=== PATIENT | female | born 1980 | race Caucasian/White ===

== ENCOUNTER 2023-09-22 21:16 | Inpatient (IN) ==
[2023-09-22 22:08] LABS: Basophils # (auto) 0.08 K/uL (0.00-0.20); Basophils % (auto) 0.7 %; Eosinophils # (auto) 0.29 K/uL (0.00-0.50); Eosinophils % (auto) 2.5 %; Hematocrit (blood only) 41.2 % (37.0-47.0); Hemoglobin 13.6 g/dl (12.0-16.0); Immature Granulocytes # (auto) 0.03 K/uL (0.01-0.20); Immature Granulocytes % (auto) 0.3 %; Lymphocytes # (auto) 4.86 K/uL (1.20-3.40); Lymphocytes % (auto) 42.5 %; Mean Corpuscular Hemoglobin 27.9 pg (25.0-34.0); Mean Corpuscular Volume 84.4 fL (80.0-100.0); Mean Platelet Volume 10.6 fL (9.4-12.4); Monocytes # (auto) 0.58 K/uL (0.11-0.59); Monocytes % (auto) 5.1 %; Neutrophils % (auto) 48.9 %; Platelet Count 294 K/uL (130-400); RDW Coefficient of Variation 13.1 % (11.5-14.5); RDW Standard Deviation 40.1 fL (36.4-46.3); Red Blood Count 4.88 M/uL (4.20-5.40); White Blood Count 11.44 K/ul (4.8-10.8)
[2023-09-22 22:15] LABS: Appearance Urine Cloudy (Clear); Bacteria Urine Automated 2+ (None Seen); Bilirubin Urine Negative (Negative); Blood Urine Negative (Negative); Calcium Oxalate Crystals Urine Present (None Prsent); Color Urine Dark Yellow; Glucose Urine UA Negative (Negative); Ketones Urine 1+ (Negative); Leukocyte Esterase Urine 1+ (Negative); Mucus Urine Present (None Prsent); Nitrite Urine Negative (Negative); Protein Urine 1+ (Negative); Specific Gravity Urine 1.029 (1.000-1.030); Urobilinogen Urine Negative (Negative)
[2023-09-22 22:20] LABS: Alanine Aminotransferase 24 U/L (7-52); Albumin Globulin Ratio 1.6 (0.9-2); Albumin Level 4.6 gm/dl (3.4-5.0); Alkaline Phosphatase 51 U/L (34-104); Anion Gap 11 (3-11); Aspartate Aminotransferase 20 U/L (13-39); Bilirubin,Total 0.3 mg/dl (0.2-1.0); Blood Urea Nitrogen 19 mg/dl (6-23); Calcium 10.4 mg/dl (8.6-10.3); Carbon Dioxide 22 mmol/L (21-32); Chloride 103 mmol/L (98-107); Est GFR (African American) 116.9 ml/min; Est GFR (Non-African American) 100.9 ml/min; Globulin 2.8 gm/dl (2.5-4.0); Glucose 148 mg/dl (70-99(Fasting)); Lipase 20 U/L (11-82); Sodium 136 mmol/L (136-145); Total Protein 7.4 gm/dl (6.0-8.3)
[2023-09-22] MEDS: ACETAMINOPHEN 1,000 MG/100 ML VIAL IV STA (22:20)
[2023-09-22] MEDS: MoRPHine SULFATE 4 MG/ML 1 ML CARP\\VIAL IV STA (22:20)
[2023-09-22] MEDS: SODIUM CHLORIDE 0.9% 1,000 ML IV ONE (22:22)
[2023-09-22 22:36] LABS: Pregnancy Test, Serum Negative (Negative)
--- NOTE | 2023-09-22 22:55 | Emergency Department Note ---
History of Present Illness General Chief complaint: Vomiting Stated complaint: SEVERE ABD PAIN, VOMITING/NAUSEA Time Seen by Provider: 09/22/23 21:58 History of Present Illness Maximum Pain Intensity: 7 This 43-year-old female presents ER complaining of left lower abdominal pain since 8 PM tonight. She did vomit once. Patient denies chest pain, dyspnea, cough, congestion, fever, chills, flank pain, urinary symptoms, rash. No injury to the area. Gallbladder has been surgically removed. Patient is concerned it could be her appendix. Home Medications Medication Instructions Recorded Confirmed Type Lactobacil.acidophilus-Bifido.animalis 1 cap PO DAILY 09/23/23 09/23/23 History 5 billion cell sprinkle capsule (Probiotic) ascorbic acid (vitamin C) 1,000 mg 1 g PO DAILY 09/23/23 09/23/23 History tablet (Vitamin C) coenzyme Q10 100 mg capsule 200 mg PO DAILY 09/23/23 09/23/23 History (CoQ-10) levothyroxine 25 mcg tablet 25 mcg PO DAILY 09/23/23 09/23/23 History metformin 500 mg tablet 500 mg PO BID 09/23/23 09/23/23 History omeprazole magnesium 20 mg 20 mg PO DAILY 09/23/23 09/23/23 History tablet,delayed release (Prilosec OTC) Allergies Allergy/AdvReac Type Severity Reaction Status Date / Time Penicillins Allergy Intermediate ORAL HIVES Verified 09/23/23 00:28 Past Med/Surg History Problem List (Updated 09/23/23 @ 00:45 by Josseline Gillespie PA-C) Kidney stone on left side (Acute) Acute UTI (Acute) Social History Smoking Status: Former smoker Preferred Language: Slovak Feels Safe at Home: Yes Review of Systems A total of 10 systems reviewed and were otherwise negative Physical Exam Vital Signs Vital Signs - 24 hr 09/22/23 21:23 09/22/23 22:17 09/22/23 22:43 Temperature 36.4 C L Temperature Source Oral Pulse Rate 87 82 Pulse Rate [Apical] 81 Pulse Rate from SpO2 Sensor Respiratory Rate 18 17 Respiratory Effort / Characteristics Non-Labored Respiratory Depth Normal Respiratory Pattern Regular Blood Pressure 114/78 Blood Pressure [Right Arm] 131/84 Blood Pressure Mean 90 Blood Pressure Mean [Right Arm] 99 Pulse Oximetry 95 97 Oxygen Delivery Method Room Air Sepsis Recent Fever Within 48 Hours No Sepsis New/Unexplained Change in Mental Status No Sepsis Action Taken by Nursing No Action Required 09/22/23 23:30 09/23/23 00:00 09/23/23 00:30 Temperature Temperature Source Pulse Rate 82 82 82 Pulse Rate [Apical] Pulse Rate from SpO2 Sensor 83 84 83 Respiratory Rate 23 17 18 Respiratory Effort / Characteristics Respiratory Depth Respiratory Pattern Blood Pressure 143/84 H 135/91 136/100 Blood Pressure [Right Arm] Blood Pressure Mean 103 105 112 Blood Pressure Mean [Right Arm] Pulse Oximetry 96 93 94 Oxygen Delivery Method Sepsis Recent Fever Within 48 Hours Sepsis New/Unexplained Change in Mental Status Sepsis Action Taken by Nursing 09/23/23 01:00 Temperature Temperature Source Pulse Rate 85 Pulse Rate [Apical] Pulse Rate from SpO2 Sensor 87 Respiratory Rate 16 Respiratory Effort / Characteristics Respiratory Depth Respiratory Pattern Blood Pressure 142/95 H Blood Pressure [Right Arm] Blood Pressure Mean 110 Blood Pressure Mean [Right Arm] Pulse Oximetry 95 Oxygen Delivery Method Sepsis Recent Fever Within 48 Hours Sepsis New/Unexplained Change in Mental Status Sepsis Action Taken by Nursing VITALS: Vitals are noted on the nurse's note and reviewed by myself. Vital signs stable. GENERAL: White female with present, in no acute distress, nondiaphoretic, well-developed well-nourished. SKIN: Capillary reflex less than 2 seconds. HEENT: Normocephalic. PERRLA. EOMI. Nares patent. Mucous membranes moist. Neck is supple without nuchal rigidity. HEART: Regular rate and rhythm LUNGS: Clear to auscultation bilaterally without wheezes, rales or rhonchi. No retractions or accessory muscle use. ABDOMEN: Positive bowel sounds x 4. Normal tympanic percussion. Soft, tender lower abdomen, without masses or organomegaly. Apple sign negative. No guarding or rebound tenderness. no CVA tenderness MUSCULOSKELETAL: No gross musculoskeletal defects. NEURO: Patient was alert and oriented to person place and time. No focal neurological deficits. Course Administered Medications Discontinued Medications Sodium Chloride (Nss) 1,000 mls @ 999 mls/hr IV .Q1H1M ONE Stop: 09/22/23 23:00 Last Infusion: 09/22/23 23:44 Dose: Infused Documented By: Admin: 09/22/23 22:22 Dose: 999 mls/hr Documented By: HEAVEN Acetaminophen (Ofirmev) 1,000 mg in 100 mls @ 400 mls/hr IV NOW STA Stop: 09/22/23 22:24 Last Infusion: 09/22/23 23:04 Dose: Infused Documented By: Admin: 09/22/23 22:20 Dose: 400 mls/hr Documented By: HEAVEN Ceftriaxone Sodium (Rocephin) 2,000 mg in 50 mls @ 100 mls/hr IV NOW STA Stop: 09/22/23 23:41 Last Infusion: 09/23/23 00:56 Dose: Infused Documented By: Admin: 09/23/23 00:05 Dose: 100 mls/hr Documented By: HERO Ioversol (Optiray 320 100ml) 90 ml IV ONCE ONE Stop: 09/22/23 23:04 Last Admin: 09/22/23 23:04 Dose: 90 ml Documented By: KESHAWN Morphine Sulfate (Morphine Sulfate 4 Mg/Ml 1 Ml Carp\Vial) 4 mg IV NOW STA Stop: 09/22/23 22:11 Last Admin: 09/22/23 22:20 Dose: 4 mg Documented By: HEAVEN Medical Decision Making Medical Records Attestation: I reviewed the patient's medical records. Home Medications Current Medication List: was personally reviewed by me Laboratory Data Attestation: I reviewed the patient's lab results. 09/22/23 21:36 09/22/23 21:36 Lab Results 09/22/23 09/22/23 09/22/23 Range/Units 21:36 21:42 21:45 WBC 11.44 H (4.8-10.8) K/ul RBC 4.88 (4.20-5.40) M/uL Hgb 13.6 (12.0-16.0) g/dl Hct 41.2 (37.0-47.0) % MCV 84.4 (80.0-100.0) fL MCH 27.9 (25.0-34.0) pg MCHC 33.0 (32.0-36.0) g/dL RDW Std Deviation 40.1 (36.4-46.3) fL RDW Coeff of Yaa 13.1 (11.5-14.5) % Plt Count 294 (130-400) K/uL MPV 10.6 (9.4-12.4) fL Immature Gran % (Auto) 0.3 % Neut % (Auto) 48.9 % Lymph % (Auto) 42.5 % Archuleta % (Auto) 5.1 % Eos % (Auto) 2.5 % Baso % (Auto) 0.7 % Neut # (Auto) 5.60 (1.40-6.50) K/uL Lymph # (Auto) 4.86 H (1.20-3.40) K/uL Archuleta # (Auto) 0.58 (0.11-0.59) K/uL Eos # (Auto) 0.29 (0.00-0.50) K/uL Baso # (Auto) 0.08 (0.00-0.20) K/uL Immature Gran # (Auto) 0.03 (0.01-0.20) K/uL Sodium 136 (136-145) mmol/L Potassium 4.0 (3.5-5.1) mmol/L Chloride 103 (98-107) mmol/L Carbon Dioxide 22 (21-32) mmol/L Anion Gap 11 (3-11) BUN 19 (6-23) mg/dl Creatinine 0.73 (0.6-1.2) mg/dl Est Cr Clr Drug Dosing Not Reportable Est GFR ( Amer) 116.9 ml/min Est GFR (Non-Af Amer) 100.9 ml/min BUN/Creatinine Ratio 26.0 H (10-20) Glucose 148 H (70-99(Fasting)) mg/dl POC Glucose 129 H (70-99) mg/dl Calcium 10.4 H (8.6-10.3) mg/dl Total Bilirubin 0.3 (0.2-1.0) mg/dl AST 20 (13-39) U/L ALT 24 (7-52) U/L Alkaline Phosphatase 51 (34-104) U/L Total Protein 7.4 (6.0-8.3) gm/dl Albumin 4.6 (3.4-5.0) gm/dl Globulin 2.8 (2.5-4.0) gm/dl Albumin/Globulin Ratio 1.6 (0.9-2) Lipase 20 (11-82) U/L HCG, Qual Negative (Negative) Urine Color Dark Yellow Urine Appearance Cloudy A (Clear) Urine pH 5.0 (4.5-7.5) Ur Specific [place] 1.029 (1.000-1.030) Urine Protein 1+ H (Negative) Urine Glucose (UA) Negative (Negative) Urine Ketones 1+ H (Negative) Urine Blood Negative (Negative) Urine Nitrite Negative (Negative) Urine Bilirubin Negative (Negative) Urine Urobilinogen Negative (Negative) Ur Leukocyte Esterase 1+ H (Negative) Urine WBC (Auto) 6-10 H (0-5) /hpf Urine RBC (Auto) 11-20 H (0-2) /hpf U Hyaline Cast (Auto) 6-10 H (0-2) /lpf U Epithel Cells (Auto) 11-20 H (0-2) /hpf Urine Bacteria (Auto) 2+ H (None Seen) Calcium Oxalate Crystal Present A (None Prsent) Urine Mucus Present A (None Prsent) Imaging Data Attestation: I personally reviewed and interpreted this imaging study as follows: Radiologist's Impression: Abdomen/Pelvis CT 09/22/23 22:00 Exam(s): CT ABDOMEN + PELVIS With Contrast IV Amt: 90 ml opti 320 EXAM: CT Abdomen and Pelvis With Intravenous Contrast CLINICAL HISTORY: Reason for exam: lower abd pain. TECHNIQUE: Axial computed tomography images of the abdomen and pelvis with intravenous contrast. CTDI is 28.12 mGy and DLP is 1519.95 mGy-cm. Automated exposure control was utilized for the study. A dose lowering technique was utilized adhering to the principles of ALARA. CONTRAST: Patient received 90 ml opti 320 of IV contrast COMPARISON: No relevant prior studies available. FINDINGS: Lung bases: Unremarkable. No mass. No consolidation. ABDOMEN: Liver: Hepatic steatosis. Gallbladder and bile ducts: Cholecystectomy. No ductal dilation. Pancreas: Unremarkable. No mass. No ductal dilation. Spleen: Unremarkable. No splenomegaly. Adrenals: Unremarkable. No mass. Kidneys and ureters: Nonobstructing LEFT lower pole renal stones measure approximately 6 mm and 4 mm. No obstructive uropathy. No delayed nephrogram. Stomach and bowel: Unremarkable. No obstruction. No mucosal thickening. PELVIS: Appendix: No findings to suggest acute appendicitis. Bladder: Mild wall thickening of the urinary bladder, correlate for UTI. Reproductive: Low-attenuation lesions in the liver, likely uterine fibroids. ABDOMEN and PELVIS: Intraperitoneal space: Unremarkable. No free air. No significant fluid collection. Bones/joints: No acute fracture. No dislocation. Soft tissues: Small fat-containing umbilical hernia. Vasculature: Unremarkable. No abdominal aortic aneurysm. Lymph nodes: Unremarkable. No enlarged lymph nodes. IMPRESSION: 1. Low-attenuation lesions in the liver, likely uterine fibroids. 2. Mild wall thickening of the urinary bladder, correlate for UTI. 3. Hepatic steatosis. 4. Cholecystectomy. 5. Nonobstructing LEFT lower pole renal stones measure approximately 6 mm and 4 mm. No obstructive uropathy. No delayed nephrogram. Electronically signed by: Presley Welsh MD 09/22/23 23:33 PM MDM Narrative Prior records/ancillary studies reviewed. Triage Nursing notes reviewed. Additional history obtained from family. The patient's history was concerning for abdominal pain. Differential diagnosis: Etiologies such as appendicitis, diverticulitis, PUD, biliary pathology, UTI, pancreatitis, obstruction, mesenteric ischemia, aortic pathology, infections, inflammatory bowel disease, renal colic, as well as others were entertained. Physical examination findings: As above. ER treatment provided: An order was placed for continuous cardiac monitoring. The monitor shows a rate of 60-100 with a sinus rhythm per my Independent interpretation. IV fluids, Tylenol, morphine, Zofran was ordered On reassessment the patient felt better. Diagnostics interpreted by me: The labs Independently Interpreted by myself revealed mild leukocytosis, mild hyperglycemia without DKA Negative hCG Imaging studies: CT was reviewed and read by radiology as above Consultation: A consultation was placed with the hospitalist. The case was discussed and diagnostics were reviewed. The patient was evaluated in the ER for further treatment. Exam and history seem consistent with UTI with concerns for possible kidney stone. I did contact stat rad who states the stone is not in the ureter. Patient was still moderate amount of pain. Medicine is consulted case discussed. She will admitted to the medical service. Patient is agreeable. By the evaluation outlined above emergent etiologies such as appendicitis, diverticulitis, PUD, biliary pathology, pancreatitis, obstruction, mesenteric ischemia, aortic pathology, inflammatory bowel disease, as well as others were deemed relatively unlikely. The pt informed about the findings as listed above. All questions were answered and pleased with the treatment. The chart was completed utilizing Sonos voice recognition software. Grammatical errors, random word insertions, pronoun errors, and incomplete sentences are an occassional consequence of this system due to software limitations, ambient noise, and hardware issues. Any formal questions or concerns about the content, text, or information contained within the body of this dictation should be directly addressed to the physician tourist information assistant for clarification. Impression & Plan Acute UTI, Kidney stone on left side Discharge Plan Visit Data Chief Complaint: Vomiting Stated Complaint: SEVERE ABD PAIN, VOMITING/NAUSEA ED Provider: Maren Padron ED Midlevel Provider: Josseline Gillespie Discharge Problem: Acute UTI, Kidney stone on left side Patient Disposition: Admitted As Inpatient Condition: Good Forms Stand Alone Forms: [facility] Prescriptions Prescriptions: No Action metformin 500 mg tablet 500 mg PO BID ascorbic acid (vitamin C) [Vitamin C] 1,000 mg Tablet 1 g PO DAILY levothyroxine 25 mcg tablet 25 mcg PO DAILY coenzyme Q10 [CoQ-10] 100 mg Capsule 200 mg PO DAILY omeprazole magnesium [Prilosec OTC] 20 mg Tablet,Delayed Release (Dr/Ec) 20 mg PO DAILY Probiotic 5 billion cell Capsule, Sprinkle 1 cap PO DAILY Referrals Referrals: John Olivo [Primary Care Provider] -
[2023-09-22] MEDS: OPTIRAY 320 100ml IV ONE (23:04)
--- NOTE | 2023-09-22 23:34 | CT Scan Report ---
Exam(s): CT ABDOMEN + PELVIS With Contrast IV Amt: 90 ml opti 320 EXAM: CT Abdomen and Pelvis With Intravenous Contrast CLINICAL HISTORY: Reason for exam: lower abd pain. TECHNIQUE: Axial computed tomography images of the abdomen and pelvis with intravenous contrast. CTDI is 28.12 mGy and DLP is 1519.95 mGy-cm. Automated exposure control was utilized for the study. A dose lowering technique was utilized adhering to the principles of ALARA. CONTRAST: Patient received 90 ml opti 320 of IV contrast COMPARISON: No relevant prior studies available. FINDINGS: Lung bases: Unremarkable. No mass. No consolidation. ABDOMEN: Liver: Hepatic steatosis. Gallbladder and bile ducts: Cholecystectomy. No ductal dilation. Pancreas: Unremarkable. No mass. No ductal dilation. Spleen: Unremarkable. No splenomegaly. Adrenals: Unremarkable. No mass. Kidneys and ureters: Nonobstructing LEFT lower pole renal stones measure approximately 6 mm and 4 mm. No obstructive uropathy. No delayed nephrogram. Stomach and bowel: Unremarkable. No obstruction. No mucosal thickening. PELVIS: Appendix: No findings to suggest acute appendicitis. Bladder: Mild wall thickening of the urinary bladder, correlate for UTI. Reproductive: Low-attenuation lesions in the liver, likely uterine fibroids. ABDOMEN and PELVIS: Intraperitoneal space: Unremarkable. No free air. No significant fluid collection. Bones/joints: No acute fracture. No dislocation. Soft tissues: Small fat-containing umbilical hernia. Vasculature: Unremarkable. No abdominal aortic aneurysm. Lymph nodes: Unremarkable. No enlarged lymph nodes. IMPRESSION: 1. Low-attenuation lesions in the liver, likely uterine fibroids. 2. Mild wall thickening of the urinary bladder, correlate for UTI. 3. Hepatic steatosis. 4. Cholecystectomy. 5. Nonobstructing LEFT lower pole renal stones measure approximately 6 mm and 4 mm. No obstructive uropathy. No delayed nephrogram. Electronically signed by: Presley Welsh MD 09/22/23 23:33 PM
[2023-09-23] MEDS: cefTRIAXone SODIUM 2,000 MG/50 ML BAG IV STA (00:05)
--- NOTE | 2023-09-23 01:03 | History & Physical Report ---
"Date of Service September 23, 2023 Assessment & Plan (1) Kidney stone on left side: (2) Pyelonephritis of left kidney: (3) Acute UTI: (4) Hypothyroidism: (5) GERD (gastroesophageal reflux disease): (6) Type 2 diabetes mellitus: Shelby Valle is a 43F with PMH of hypothyroidism, T2DM, and GERD who presents for evaluation of left flank pain and emesis. Nephrolithiasis - Patient w/ acute left flank pain and inability to find comfortable position - Patient with history of kidney stones and urologic procedure to left ureter - CTAP indicative of nephrolithiasis w/o confirmed obstruction - Follow urine output - Pain Management; Tylenol, Toradol - Continue w/ mIVF, Creatinine and GFR wnl - Urology consulted, appreciate recommendations Pyelonephritis | UTI - Patient w/ significant abdominal pain, CVA TTP, nausea, and emesis - Urinalysis with positive leuk est, RBC, WBC, and bacteria - Urine culture pending - Leukocytosis on presentation - Empiric treatment with Ceftriaxone Chronic Conditions - Hypothyroidism: Continue Levothyroxine - T2DM: q6h checks while NPO, SSI inpatient - GERD: Continue PPI FEN: NPO Code status: Full Code DVT ppx: Ambulation/SCD Isolation: None Dispo:Med/Surg History of Present Illness Chief Complaint: Flank Pain, Emesis Primary Care Provider: John Victoria Geovani Valle is a 43F with PMH of hypothyroidism, T2DM, and GERD who presents for evaluation of left flank pain and emesis. Patient notes that she had a very normal, asymptomatic day - she went hiking, ate and showed prior to an acute episode of excruciating left flank pain which started at 8 PM. She tried walking, laying in bed, laying on the floor, and massage w/o relief and was unable to find a comfortable position. Her pain was unrelenting, thus prompting presentation to the ED. She notes that en route she became nauseous and started vomiting. She denies fevers, chills, dysuria, suprapubic pain, frequency, or urgency. She has not had any recent headache or lightheadedness. No bowel changes. 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 Over the years following she notes she has 1-2 self resolving kidney stones (she presumes) per year which present with flank pain that presents gradually and eventually resolves. She notes this episode is unique for her, in that her symptoms were very abrupt. No recent dietary changes. Endorses appropriate hydration. ED Course: 1L NSS, Ceftriaxone, Morphine Allergies Allergy/AdvReac Type Severity Reaction Status Date / Time Penicillins Allergy Intermediate ORAL HIVES Verified 09/23/23 00:28 Home Medications Medication Instructions Recorded Confirmed Type Lactobacil.acidophilus-Bifido.animalis 1 cap PO DAILY 09/23/23 09/23/23 History 5 billion cell sprinkle capsule (Probiotic) ascorbic acid (vitamin C) 1,000 mg 1 g PO DAILY 09/23/23 09/23/23 History tablet (Vitamin C) coenzyme Q10 100 mg capsule 200 mg PO DAILY 09/23/23 09/23/23 History (CoQ-10) levothyroxine 25 mcg tablet 25 mcg PO DAILY 09/23/23 09/23/23 History metformin 500 mg tablet 500 mg PO BID 09/23/23 09/23/23 History omeprazole magnesium 20 mg 20 mg PO DAILY 09/23/23 09/23/23 History tablet,delayed release (Prilosec OTC) Past Med/Surg History Problem List Type 2 diabetes mellitus GERD (gastroesophageal reflux disease) Hypothyroidism Pyelonephritis of left kidney Kidney stone on left side (Acute) Acute UTI (Acute) Surgical History H/O pyeloplasty Social History Smoking Status: Former smoker Do You Dip or Chew Tobacco: No; Hx Alcohol Use: Yes Alcohol type: wine Hx Substance Use: No Preferred Language: [place] Leonean Communication Ability: Effective Lock Technician Required: No Beliefs That Will Affect Care: None Current Living Situation: Spouse Feels Safe at Home: Yes Safety Concerns: Feels Safe At This Time Assistive Devices: Cane and Crutches Physical Exam Physical Exam: Gen: uncomfortable, alert, interactive, warm to touch HEENT: Supple, no LAD, no thyromegaly, no JVD Resp:Non-labored, no wheezing/rhonchi/rales, CTAB CV:RRR, normal S1/S2, no M/R/G Abd: Soft, non-distended, diffuse TTP, no rebound or guarding, normoactive bowels, no masses, left CVA tenderness Extr: 2+ dp bilaterally, no edema Skin: No rashes lesions or erythema Results & Data Results & Data Vital Signs (Past 12 Hours) Vital Signs Temp Pulse Pulse Resp BP BP Pulse Ox 09/22/23 22:43 82 09/22/23 22:17 81 17 131/84 97 09/22/23 21:23 36.4 C L 87 18 114/78 95 O2 Del Method 09/22/23 22:43 09/22/23 22:17 09/22/23 21:23 Room Air Supervising Physician Co-Signing Physician Notes Patient seen and examined, chart reviewed, case discussed with Dr. Swift and I agree with the assessment and plan as above. Resident Activity Tracking Resident Involvement: Resident Care Provided Care Provided: Adult Hospital Medicine (Night)"
[2023-09-23] MEDS ORDERED: POLYETHYLENE (MIRALAX) 17 GM PACK PO PRN (03:22)
[2023-09-23] MEDS ORDERED: ONDANSETRON INJ 2 MG/ML 2 ML VIAL IV PRN (03:22)
[2023-09-23] MEDS ORDERED: MELATONIN 3 MG TAB PO PRN (03:22)
[2023-09-23] MEDS ORDERED: GLUCOSE 10 TAB/TUBE PO PRN (03:22)
[2023-09-23] MEDS ORDERED: GLUCAGON FOR INJ 1 MG VIAL SQ PRN (03:22)
[2023-09-23] MEDS ORDERED: CARBOHYDRATES FOR HYPOGLYCEMIA PO PRN (03:22)
[2023-09-23] MEDS ORDERED: DEXTROSE 50% 50 ML SYRINGE IV PRN (03:22)
[2023-09-23] MEDS ORDERED: cefTRIAXone SODIUM 1,000 MG/50 ML BAG IV SCH (03:22)
[2023-09-23] MEDS ORDERED: GLUCOSE 40% GEL 15 GM TUBE PO PRN (03:22)
[2023-09-23] MEDS: KETOROLAC TROMETHAMINE 15 MG/ML VIAL IV PRN (03:56)
[2023-09-23] MEDS: LACTATED RINGER'S 1,000 ML IV SCH (03:56)
[2023-09-23] MEDS ORDERED: Nursing to Pharmacy Communication SCH ×2 (04:00→10:00)
[2023-09-23] MEDS: INSULIN ASPART PER UNIT CHARGE SC SCH ×2 (05:24→12:59)
[2023-09-23] MEDS: LEVOTHYROXINE SODIUM 25 MCG TABLET PO SCH (05:27)
[2023-09-23] MEDS: PANTOprazole 40 MG TAB PO SCH (07:25)
[2023-09-23] MEDS ORDERED: INSULIN ASPART PER UNIT CHARGE SC SCH (07:30)
[2023-09-23 07:44] LABS: Estimated Average Glucose 137 mg/dl; Hemoglobin A1C 6.4 % (4.5-5.6)
[2023-09-23 07:46] LABS: Hematocrit (blood only) 35.2 % (37.0-47.0); Hemoglobin 11.9 g/dl (12.0-16.0); Mean Corpuscular Hemoglobin 28.7 pg (25.0-34.0); Mean Corpuscular Hgb Conc 33.8 g/dL (32.0-36.0); Mean Platelet Volume 10.4 fL (9.4-12.4); Platelet Count 241 K/uL (130-400); RDW Coefficient of Variation 13.3 % (11.5-14.5); RDW Standard Deviation 41.7 fL (36.4-46.3); Red Blood Count 4.14 M/uL (4.20-5.40); White Blood Count 11.79 K/ul (4.8-10.8)
[2023-09-23 08:17] LABS: BUN Creatinine Ratio 19.7 (10-20); Calcium 9.9 mg/dl (8.6-10.3); Creatinine Clr Calc Pharmacy 144.9 ml/min; Est GFR (African American) 125.4 ml/min; Est GFR (Non-African American) 108.2 ml/min; Potassium 4.1 mmol/L (3.5-5.1)
--- NOTE | 2023-09-23 08:40 | Urology Consultation ---
<Statement entered by Jl Zeng MD - 09/23/23 12:14> I have discussed Ms. Miguel's case with ANNA Morris and agree with the above documentation. She remains hemodynamically stable and is having significantly less pain. CT scan slightly challenging to interpret, although no obviously obstructing stone identified. We will hold off on intervention at thi s point. Will continue to monitor and continue antibiotics, follow-up cultures. Urology will follow along. -Jl Zeng MD. Date of Consultation September 23, 2023 Assessment & Plan (1) Kidney stone on left side: (2) Acute UTI: 43 yo/F with history of nephrolithiasis and left UPJ obstruction status post pyeloplasty admitted for left nephrolithiasis and suspicion of UTI. Patient is afebrile and hemodynamically stable Labs todaycreatinine 0.66, WBC 11.79, hemoglobin 11.9 Urinalysis suspicious for UTI with LE, WBC and bacteria Urine culture is pending CT A/P reviewed and notable for left renal calculi, there is a calcification adjacent to the UPJ and possible small stone within the UPJ versus adjacent Subjectively she is feeling much better, minimal pain this morning We reviewed and discussed options for management including surgical intervention with left ureteral stent placement today Alternatively, we discussed conservative management with antibiotics, supportive care, and close monitoring After discussion, she wishes to monitor for now which is reasonable since her pain has improved and she is stable Recommend continue with broad-spectrum antibiotics and tailor per sensitivities when available Continue supportive care, hydration, and pain/symptom management No intervention today, okay for diet today and then NPO at midnight to reassess will follow, please contact our service urgently if patient develops fever >101F, intractable pain or nausea, as this will necessitate urgent surgical intervention History of Present Illness Attending Physician: Juan Manuel Kyle DO History of Present Illness This is a 43-year-old female with past medical history of nephrolithiasis and left UPJ obstruction status post pyeloplasty who presented to the emergency department on 09/22/2023 with sudden onset of left flank and abdominal pain with associated nausea and vomiting. On arrival, she was afebrile and hemodynamically stable. Lab work reviewed and showed WBC 11.44, hemoglobin 13.6, creatinine 0.73. Urinalysis showed 1+ protein, 1+ ketones, 1+ LE, 6-10 WBC, 11-20 RBC, 11-20 epithelial cells, 2+ urine bacteria and calcium oxalate crystals present. Workup in the emergency department included CT A/P with IV contrast. CT imaging independently reviewed and showed nonobstructing left renal calculi, mild dilation of the left UPJ with a calcification adjacent to the UPJ possibly in the gonadal vein and a small calcification possibly within the UPJ vs adjacent. ED course: IV fluids, Ceftriaxone, Acetaminophen and morphine. She was admitted to the hospital medicine service. Urology is consulted for nephrolithiasis, UTI. Labs today show creatinine 0.66, WBC 11.79, hemoglobin 11.9. Urine culture is pending. Patient seen and examined at bedside. She is resting in bed in no apparent distress. She reports feeling much better since arrival. She reports some abdominal pain rated as 2 out of 10. No nausea or vomiting. No fever or chills . She is voiding without difficulty. No dysuria or hematuria. She reports history of open pyeloplasty when she was 19 years old for left UPJ obstruction due to crossing vessels. She has known history of kidney stones. No prior surgical intervention for stones. She has previously passed stones spontaneously. Allergies Allergy/AdvReac Type Severity Reaction Status Date / Time Penicillins Allergy Intermediate ORAL HIVES Verified 09/23/23 00:28 Home Medications Medication Instructions Recorded Confirmed Type Lactobacil.acidophilus-Bifido.animalis 1 cap PO DAILY 09/23/23 09/23/23 History 5 billion cell sprinkle capsule (Probiotic) ascorbic acid (vitamin C) 1,000 mg 1 g PO DAILY 09/23/23 09/23/23 History tablet (Vitamin C) coenzyme Q10 100 mg capsule 200 mg PO DAILY 09/23/23 09/23/23 History (CoQ-10) levothyroxine 25 mcg tablet 25 mcg PO DAILY 09/23/23 09/23/23 History metformin 500 mg tablet 500 mg PO BID 09/23/23 09/23/23 History omeprazole magnesium 20 mg 20 mg PO DAILY 09/23/23 09/23/23 History tablet,delayed release (Prilosec OTC) Patient History Surgical History H/O pyeloplasty Social History Smoking Status: Former smoker Do You Dip or Chew Tobacco: No; Hx Alcohol Use: Yes Alcohol type: wine Hx Substance Use: No Preferred Language: Danish Communication Ability: Effective Manager Fast Food Required: No Beliefs That Will Affect Care: None Current Living Situation: Spouse Feels Safe at Home: Yes Safety Concerns: Feels Safe At This Time Assistive Devices: Cane, Contacts and Glasses Review of Systems Review of Systems: All systems reviewed & are unremarkable except as noted in HPI & below Physical Exam Constitutional: well developed and well nourished; no acute distress and not ill appearing Eyes: no scleral abnormality Respiratory: normal respiratory effort; no respiratory distress and no labored breathing Gastrointestinal (Abdomen): Inspection/Auscultation: abdomen normal to inspection Musculoskeletal: Head/Neck/Chest: normocephalic Neurologic: moves all extremities and awake Psychiatric: Orientation: alert and oriented x 3 Genitourinary: no CVA tenderness Results & Data Vital Signs (Past 12 Hours) Vital Signs Temp Pulse Pulse Pulse Resp BP BP 09/23/23 07:19 36.9 C 73 16 117/78 09/23/23 03:05 36.9 C 87 18 09/23/23 02:56 83 09/23/23 01:00 85 16 142/95 H 09/23/23 00:30 82 18 136/100 09/23/23 00:00 82 17 135/91 09/22/23 23:30 82 23 143/84 H 09/22/23 22:43 82 09/22/23 22:17 81 17 09/22/23 21:23 36.4 C L 87 18 114/78 BP Pulse Ox O2 Del Method 09/23/23 07:19 94 Room Air 09/23/23 03:05 117/87 94 Room Air 09/23/23 02:56 09/23/23 01:00 95 09/23/23 00:30 94 09/23/23 00:00 93 09/22/23 23:30 96 09/22/23 22:43 09/22/23 22:17 131/84 97 09/22/23 21:23 95 Room Air PG Care Time/CCT Total # of Minutes Spent Total Time Spent with Patient: Total time spent is greater than 50% in coordination of care (as documented) at patient's floor/unit and/or counseling patient: Coding Level of Care Code 80441 IN/OBS CONSULT LVL 4,60M Diagnoses Kidney stone on left side N20.0 Acute UTI N39.0
--- NOTE | 2023-09-23 12:38 | Hospitalist Progress Note ---
"Date of Service September 23, 2023 Assessment & Plan (1) Kidney stone on left side: (2) Pyelonephritis of left kidney: (3) Acute UTI: (4) Type 2 diabetes mellitus: (5) Hypothyroidism: (6) GERD (gastroesophageal reflux disease): Plan Assessment/Plan Yahir is a 43F with PMH of hypothyroidism, T2DM, and GERD who presents for evaluation of left flank pain and emesis. (1) Nephrolithiasis * Patient w/ acute left flank pain and inability to find comfortable position * Patient with history of kidney stones and urologic procedure to left ureter at [facility] * CTAP indicative of nephrolithiasis w/o confirmed obstruction, evidence of possible obstruction * Follow urine output * Pain Management: Pain adequately controlled on Tylenol, Toradol * Continue w/ mIVF, Creatinine and GFR WNL * Consider Flomax to aid in passage of renal calculus * Urology consulted, appreciate recommendations - no acute intervention today, will re-evaluate patient tomorrow morning. NPO @midnight. (2) Pyelonephritis | UTI * Patient w/ significant abdominal pain, CVA TTP, nausea, and emesis * Urinalysis with positive leuk est, RBC, WBC, and bacteria * Urine culture pending * Leukocytosis on presentation * Empiric treatment with Ceftriaxone, switch to targeted Tx pending urine cx (3) Chronic Conditions * Hyoothyroidism: Continue Levothyroxine * T2DM: q6h checks while NPO, SSI inpatient * GERD: Continue PPI FEN: NPO Code status: Full Code DVT ppx: Ambulation/SCD Isolation: None Dispo: Med/Surg Admission and Anticipated Discharge Date Admission Date: September 23, 2023 Supervising Physician Co-Signing Physician Notes seen in follow-up from early a.m. admission. Resting comfortablyasleep whenever I see her. Allowed to rest. Urology input greatly appreciated. Follow into tomorrow, hopefully symptoms spontaneously resolve, if not urologic intervention. Otherwise as above and per H&P. Subjective HPI On 09/21, her and her went hiking and walked around the block. Came home, took a shower, made dinner, sat down to eat and pain hit her when she sat down. No pain during the day. She noticed she was abnormally fatigued that morning into the afternoon sans fevers or chills. Presented to the ED. Vomited once en route. Found to have WBC of 11k, dirty UA w/ (+) LE, (+) Calcium Oxalate Crystals, BUN/Cr WNL. 8-9/10 pain, (+) renal calcifications w/ possible obstruction on CTAP. Since she's been at [facility], has felt suprapubic pain and pressure, not felt since pain meds started. She endorses adequate hydration on 09/21, but states that urine was dark yellow. No dysuria or hematuria, but incr eased frequency and urgency since Thursday. She did feel unusually fatigued and noticed L leg pain tingling, radiating from L hip to L foot the day of her presentation to the ED. She had been lifting weights the day of and does endorse intermittent low back pain that seems musculoskeletal in nature. Mild CVA tenderness. Takes Vit C supplement every day. No citrate supplements. Lifestyle is somewhat sedentary, began to exercise due to recent high cholesterol on labs. Diet moderately high in salty foods. She denies chest pain, palpitations, SOB, Diarrhea, Rashes, Arthralgias, or Myalgias. 09/22 Morning/Afternoon 2/10 pain, dull ache this AM, much more comfortable. Still no fevers, chills, dysuria, hematuria. Gave her morphine, she got cold, but no chills. Found to be sleeping comfortably on early afternoon rounds. Review of Systems Review of Systems: negative excepting HPI Physical Exam Physical Exam: GEN: AAO x4, Ill-Appearing, NAD HEENT: NC/AT, PERRLA, EOMI, Good Conjugate Gaze, Nares Patent, MMM, normal conjunctiva, normal dentition NECK: Supple, Normal ROM RESP: CTAB, No WRR, Normal Respiratory Effort CV: RRR, Normal S1/S2, No M/R/G ABD: Diffusely Tender w/ increased tenderness over suprapubic region, Normal Bowel Sounds, No Hepatosplenomegaly, No Masses EXT: Normal Tone & ROM, Strength 5/5, b/l, Sensation Intact, No Edema, No cyanosis NEURO: CN II-XII Grossly Intact DERM: Skin Intact, No Rashes, No Lesions, No Erythema Results & Data Results & Data Vital Signs (Past 12 Hours) Vital Signs Temp Pulse Pulse Resp BP BP BP 09/23/23 07:19 36.9 C 73 16 117/78 09/23/23 03:05 36.9 C 87 18 117/87 09/23/23 02:56 83 09/23/23 01:00 85 16 142/95 H 09/23/23 00:30 82 18 136/100 Pulse Ox O2 Del Method 09/23/23 07:19 94 Room Air 09/23/23 03:05 94 Room Air 09/23/23 02:56 09/23/23 01:00 95 09/23/23 00:30 94 Laboratory Results 09/23/23 09/23/23 09/23/23 11:35 07:11 05:49 WBC 11.79 H RBC 4.14 L Hgb 11.9 L Hct 35.2 L MCV 85.0 MCH 28.7 MCHC 33.8 RDW Std Deviation 41.7 RDW Coeff of Yaa 13.3 Plt Count 241 MPV 10.4 Immature Gran % (Auto) Neut % (Auto) Lymph % (Auto) Henry % (Auto) Eos % (Auto) Baso % (Auto) Neut # (Auto) Lymph # (Auto) Henry # (Auto) Eos # (Auto) Baso # (Auto) Immature Gran # (Auto) Sodium 137 Potassium 4.1 Chloride 105 Carbon Dioxide 26 Anion Gap 6 BUN 13 Creatinine 0.66 Est Cr Clr Drug Dosing 144.9 Est GFR ( Amer) 125.4 Est GFR (Non-Af Amer) 108.2 BUN/Creatinine Ratio 19.7 Glucose 104 H POC Glucose 137 H Estimat Average Glucose 137 Hemoglobin A1c 6.4 H Calcium 9.9 Total Bilirubin AST ALT Alkaline Phosphatase Total Protein Albumin Globulin Albumin/Globulin Ratio Lipase HCG, Qual Urine Color Urine Appearance Urine pH Ur Specific Eminence Urine Protein Urine Glucose (UA) Urine Ketones Urine Blood Urine Nitrite Urine Bilirubin Urine Urobilinogen Ur Leukocyte Esterase Urine WBC (Auto) Urine RBC (Auto) U Hyaline Cast (Auto) U Epithel Cells (Auto) Urine Bacteria (Auto) Calcium Oxalate Crystal Urine Mucus 09/23/23 09/22/23 09/22/23 05:21 21:45 21:42 WBC RBC Hgb Hct MCV MCH MCHC RDW Std Deviation RDW Coeff of Yaa Plt Count MPV Immature Gran % (Auto) Neut % (Auto) Lymph % (Auto) Henry % (Auto) Eos % (Auto) Baso % (Auto) Neut # (Auto) Lymph # (Auto) Henry # (Auto) Eos # (Auto) Baso # (Auto) Immature Gran # (Auto) Sodium Potassium Chloride Carbon Dioxide Anion Gap BUN Creatinine Est Cr Clr Drug Dosing Est GFR ( Amer) Est GFR (Non-Af Amer) BUN/Creatinine Ratio Glucose POC Glucose 125 H 129 H Estimat Average Glucose Hemoglobin A1c Calcium Total Bilirubin AST ALT Alkaline Phosphatase Total Protein Albumin Globulin Albumin/Globulin Ratio Lipase HCG, Qual Urine Color Dark Yellow Urine Appearance Cloudy A Urine pH 5.0 Ur Specific Eminence 1.029 Urine Protein 1+ H Urine Glucose (UA) Negative Urine Ketones 1+ H Urine Blood Negative Urine Nitrite Negative Urine Bilirubin Negative Urine Urobilinogen Negative Ur Leukocyte Esterase 1+ H Urine WBC (Auto) 6-10 H Urine RBC (Auto) 11-20 H U Hyaline Cast (Auto) 6-10 H U Epithel Cells (Auto) 11-20 H Urine Bacteria (Auto) 2+ H Calcium Oxalate Crystal Present A Urine Mucus Present A 09/22/23 21:36 WBC 11.44 H RBC 4.88 Hgb 13.6 Hct 41.2 MCV 84.4 MCH 27.9 MCHC 33.0 RDW Std Deviation 40.1 RDW Coeff of Yaa 13.1 Plt Count 294 MPV 10.6 Immature Gran % (Auto) 0.3 Neut % (Auto) 48.9 Lymph % (Auto) 42.5 Henry % (Auto) 5.1 Eos % (Auto) 2.5 Baso % (Auto) 0.7 Neut # (Auto) 5.60 Lymph # (Auto) 4.86 H Henry # (Auto) 0.58 Eos # (Auto) 0.29 Baso # (Auto) 0.08 Immature Gran # (Auto) 0.03 Sodium 136 Potassium 4.0 Chloride 103 Carbon Dioxide 22 Anion Gap 11 BUN 19 Creatinine 0.73 Est Cr Clr Drug Dosing Not Reportable Est GFR ( Amer) 116.9 Est GFR (Non-Af Amer) 100.9 BUN/Creatinine Ratio 26.0 H Glucose 148 H POC Glucose Estimat Average Glucose Hemoglobin A1c Calcium 10.4 H Total Bilirubin 0.3 AST 20 ALT 24 Alkaline Phosphatase 51 Total Protein 7.4 Albumin 4.6 Globulin 2.8 Albumin/Globulin Ratio 1.6 Lipase 20 HCG, Qual Negative Urine Color Urine Appearance Urine pH Ur Specific Eminence Urine Protein Urine Glucose (UA) Urine Ketones Urine Blood Urine Nitrite Urine Bilirubin Urine Urobilinogen Ur Leukocyte Esterase Urine WBC (Auto) Urine RBC (Auto) U Hyaline Cast (Auto) U Epithel Cells (Auto) Urine Bacteria (Auto) Calcium Oxalate Crystal Urine Mucus Diagnostic Findings [facility], [place] [phone] CT Scan Report Patient: YAHIR GALVAN Admit Date: 09/22/23 MR#: [id number] Address1: [address] [place] [address] Acct ID:[id number] Address2: Date: 1980 [facility] Zip: [place] [address] Age: 43 Location: ED Sex: F Room/Bed: Att Phy: Diagnosis: SEVERE ABD PAIN, VOMITING/NAUSEA Jess Phy: John Olivo M.D. Service Date: 09/22/23 [facility] Phy: Interpreting Phy: Presley Welsh MDAdmit Phy: Ordering Phy: Josseline Gillespie PA-C cc: ~ ADDENDUM ADDENDUM: Exam(s): CT ABDOMEN + PELVIS With Contrast IV Amt: 90 ml opti 320 No obstructing LEFT sided renal stone. Small focal hyperdensities are present adjacent to the LEFT ureter. No delayed nephrogram. Electronically signed by: Presley Welsh MD 09/23/23 00:32 AM ADDENDUM END Exam(s): CT ABDOMEN + PELVIS With Contrast IV Amt: 90 ml opti 320 EXAM: CT Abdomen and Pelvis With Intravenous Contrast CLINICAL HISTORY: Reason for exam: lower abd pain. TECHNIQUE: Axial computed tomography images of the abdomen and pelvis with intravenous contrast. CTDI is 28.12 mGy and DLP is 1519.95 mGy-cm. Automated exposure control was utilized for the study. A dose lowering technique was utilized adhering to the principles of ALARA. CONTRAST: Patient received 90 ml opti 320 of IV contrast COMPARISON: No relevant prior studies available. FINDINGS: Lung bases: Unremarkable. No mass. No consolidation. ABDOMEN: Liver: Hepatic steatosis. Gallbladder and bile ducts: Cholecystectomy. No ductal dilation. Pancreas: Unremarkable. No mass. No ductal dilation. Spleen: Unremarkable. No splenomegaly. Adrenals: Unremarkable. No mass. Kidneys and ureters: Nonobstructing LEFT lower pole renal stones measure approximately 6 mm and 4 mm. No obstructive uropathy. No delayed nephrogram. Stomach and bowel: Unremarkable. No obstruction. No mucosal thickening. PELVIS: Appendix: No findings to suggest acute appendicitis. Bladder: Mild wall thickening of the urinary bladder, correlate for UTI. Reproductive: Low-attenuation lesions in the liver, likely uterine fibroids. ABDOMEN and PELVIS: Intraperitoneal space: Unremarkable. No free air. No significant fluid collection. Bones/joints: No acute fracture. No dislocation. Soft tissues: Small fat-containing umbilical hernia. Vasculature: Unremarkable. No abdominal aortic aneurysm. Lymph nodes: Unremarkable. No enlarged lymph nodes. IMPRESSION: 1. Low-attenuation lesions in the liver, likely uterine fibroids. 2. Mild wall thickening of the urinary bladder, correlate for UTI. 3. Hepatic steatosis. 4. Cholecystectomy. 5. Nonobstructing LEFT lower pole renal stones measure approximately 6 mm and 4 mm. No obstructive uropathy. No delayed nephrogram. Electronically signed by: Presley Welsh MD 09/22/23 23:33 PM Dictated: 09/22/23 2333 Transcribed: 09/22/23 2333 Medications Administered Current Inpatient Medications Dextrose (Dextrose 50% 50 Ml Syringe) 25 - 50 ml IV UD PRN; Protocol PRN Reason: Hypoglycemia Protocol Stop: 10/23/23 03:21 Glucagon (Glucagon For Inj 1 Mg Vial) 1 mg SQ UD PRN; Protocol PRN Reason: Hypoglycemia Protocol Stop: 10/23/23 03:21 Glucose (Glucose 40% Gel 15 Gm Tube) 15 - 30 gm PO UD PRN; Protocol PRN Reason: Hypoglycemia Protocol Stop: 10/23/23 03:21 Glucose (Glucose 10 Tab/Tube) 4 - 8 tab PO UD PRN; Protocol PRN Reason: Hypoglycemia Treatment Stop: 10/23/23 03:21 Acetaminophen (Ofirmev) 1,000 mg in 100 mls @ 400 mls/hr IV Q8H PRN PRN Reason: Pain or Fever Stop: 09/26/23 03:21 Lactated Ringer's (Lr) 1,000 mls @ 100 mls/hr IV .Q10H MICHAEL Stop: 09/23/23 23:21 Last Admin: 09/23/23 03:56 Dose: 100 mls/hr Ceftriaxone Sodium (Rocephin) 2,000 mg in 50 mls @ 100 mls/hr IV Q24H [facility]; Protocol Stop: 10/03/23 21:59 Insulin Aspart (Insulin Aspart Per Unit Charge) 0 units SC ACHS [facility] Stop: 10/23/23 11:29 Ketorolac Tromethamine (Ketorolac Tromethamine 15 Mg/Ml Vial) 15 mg IV Q6H PRN PRN Reason: Pain Stop: 09/28/23 03:21 Last Admin: 09/23/23 03:56 Dose: 15 mg Levothyroxine Sodium (Levothyroxine Sodium 25 Mcg Tablet) 25 mcg PO DAILYBB [facility] Stop: 10/23/23 06:29 Last Admin: 09/23/23 05:27 Dose: 25 mcg Melatonin (Melatonin 3 Mg Tab) 3 mg PO HS PRN PRN Reason: Insomnia Stop: 10/23/23 03:21 Miscellaneous (Carbohydrates For Hypoglycemia ) 15 - 30 gm PO UD PRN PRN Reason: Hypoglycemia Protocol Stop: 10/23/23 03:21 Ondansetron HCl (Ondansetron Inj 2 Mg/Ml 2 Ml Vial) 4 mg IV Q6H PRN PRN Reason: Nausea Stop: 10/23/23 03:21 Pantoprazole Sodium (Pantoprazole 40 Mg Tab) 40 mg PO DAILY [facility] Stop: 10/23/23 08:59 Last Admin: 09/23/23 07:25 Dose: 40 mg Polyethylene Glycol (Polyethylene (Miralax) 17 Gm Pack) 17 gm PO DAILY PRN PRN Reason: Constipation Stop: 10/23/23 03:21"
[2023-09-23] MEDS: cefTRIAXone SODIUM 2,000 MG/50 ML BAG IV SCH (21:11)
[2023-09-23] MEDS: ACETAMINOPHEN 1,000 MG/100 ML VIAL IV PRN (23:04)
--- NOTE | 2023-09-24 04:41 | Billing Data ---
Date of Service September 23, 2023 Coding Level of Care Code 66071 INT INP/OBS CARE
--- NOTE | 2023-09-24 07:48 | Urology Progress Note ---
Date of Service September 24, 2023 Assessment & Plan (1) Kidney stone on left side: Plan 43 yo/F with history of nephrolithiasis and left UPJ obstruction status post pyeloplasty admitted for left nephrolithiasis and suspicion of UTI. Patient remains afebrile and hemodynamically stable Labs reviewedno leukocytosis, normal renal function on 09/22 Urine culture with 3 types of organisms present, all moderate counts probable skin lukas Patient subjectively doing well, minimal pain We discussed options for stone management including trial of passage, surgical intervention today with stent placement, or outpatient follow-up to discuss surgery for stone treatment After discussion, she prefers outpatient management of her stones Recommend discharge to home with course of Tamsulosin and prn analgesia when medically stable Her urine culture did not identify any specific bacteria, but can consider completing short course of empiric antibiotics Recommend providing patient with urine strainer Will arrange outpatient follow-up with our service to discuss ongoing management will sign off, please contact our service with any additional questions or concerns Admission and Anticipated Discharge Date Admission Date: September 23, 2023 Subjective Patient seen and examined at bedside this morning She is awake and resting in bed No acute issues overnight Reports minimal pain this morning Voiding without difficulty, no dysuria or hematuria Denies fever, chills, nausea or vomiting Review of Systems Constitutional: as per Subjective / HPI Genitourinary: as per Subjective / HPI Physical Exam Constitutional: well developed and well nourished; no acute distress and not ill appearing Respiratory: normal respiratory effort; no respiratory distress and no labored breathing Gastrointestinal (Abdomen): Inspection/Auscultation: abdomen normal to inspection Musculoskeletal: Head/Neck/Chest: normocephalic Neurologic: moves all extremities and awake Psychiatric: Orientation: alert and oriented x 3 Results & Data Vital Signs (Past 12 Hours) Vital Signs Temp Pulse Resp BP Pulse Ox O2 Del Method 09/24/23 07:19 36.8 C 71 16 140/93 96 Room Air 09/23/23 20:54 36.3 C L 76 16 124/79 96 Room Air PG Care Time/CCT Total # of Minutes Spent Total Time Spent with Patient: Total time spent is greater than 50% in coordination of care (as documented) at patient's floor/unit and/or counseling patient: Coding Level of Care Code 74255 SUB INP/OBS CARE 25MIN Diagnoses Kidney stone on left side N20.0
[2023-09-24 08:24] LABS: Hematocrit (blood only) 36.5 % (37.0-47.0); Hemoglobin 11.9 g/dl (12.0-16.0); Mean Corpuscular Hemoglobin 28.4 pg (25.0-34.0); Mean Corpuscular Hgb Conc 32.6 g/dL (32.0-36.0); Mean Corpuscular Volume 87.1 fL (80.0-100.0); Mean Platelet Volume 10.4 fL (9.4-12.4); Platelet Count 225 K/uL (130-400); RDW Coefficient of Variation 13.4 % (11.5-14.5); RDW Standard Deviation 41.8 fL (36.4-46.3); Red Blood Count 4.19 M/uL (4.20-5.40); White Blood Count 5.86 K/ul (4.8-10.8)
--- NOTE | 2023-09-24 15:12 | Discharge Summary ---
"Date of Service September 24, 2023 Admission HPI Per Admitting Provider Tori is a 43F with PMH of hypothyroidism, T2DM, and GERD who presents for evaluation of left flank pain and emesis. Patient notes that she had a very normal, asymptomatic day - she went hiking, ate and showed prior to an acute episode of excruciating left flank pain which started at 8 PM. She tried walking, laying in bed, laying on the floor, and massage w/o relief and was unable to find a comfortable position. Her pain was unrelenting, thus prompting presentation to the ED. She notes that en route she became nauseous and started vomiting. She denies fevers, chills, dysuria, suprapubic pain, frequency, or urgency. She has not had any recent headache or lightheadedness. No bowel changes. 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 Over the years following she notes she has 1-2 self resolving kidney stones (she presumes) per year which present with flank pain that presents gradually and eventually resolves. She notes this episode is unique for her, in that her symptoms were very abrupt. No recent dietary changes. Endorses appropriate hydration. ED Course: 1L NSS, Ceftriaxone, Morphine Admission Exam Per Admitting Provider Gen: uncomfortable, alert, interactive, warm to touch HEENT: Supple, no LAD, no thyromegaly, no JVD Resp:Non-labored, no wheezing/rhonchi/rales, CTAB CV:RRR, normal S1/S2, no M/R/G Abd: Soft, non-distended, diffuse TTP, no rebound or guarding, normoactive bowels, no masses, left CVA tenderness Extr: 2+ dp bilaterally, no edema Skin: No rashes lesions or erythema Principal Diagnosis Nephrolithiasis Discharge Exam Constitutional WD/WN, vitals as above Respiratory normal respiratory effort, lungs clear to auscultation Cardiovascular RRR, no murmur, no edema Gastrointestinal (Abdomen) +LUQ/LLQ mild tenderness to palpation, +suprapubic tenderness to palpation, bowel sounds present Skin no rashes, warm and dry Psychiatric A+Ox3, euthymic affect Genitourinary Mild left CVA tenderness Discharge Data Allergies Allergy/AdvReac Type Severity Reaction Status Date / Time Penicillins Allergy Intermediate ORAL HIVES Verified 09/23/23 00:28 Consultations 09/23/23 00:43 ED Decision to Admit Stat 09/23/23 03:22 Consult Urology Routine Ordered Studies 09/22/23 22:00 CT Abd and Pelvis [CT abd pelvis IV con only] Stat Hospital Course (1) Kidney stone on left side: (2) Pyelonephritis of left kidney: (3) Acute UTI: (4) Type 2 diabetes mellitus: (5) Hypothyroidism: (6) GERD (gastroesophageal reflux disease): Plan Assessment/Plan Tori is a 43F with PMH of hypothyroidism, T2DM, and GERD who presented for evaluation of left flank pain and emesis. (1) Nephrolithiasis * Patient presented w/ acute left flank pain * Patient with history of kidney stones and urologic procedure to left ureter at [facility] * CTAP indicative of nephrolithiasis w/o confirmed obstruction * Pain improved, continue Tylenol as needed * Urology consulted, tx options discussed with patient, she opted for discharge with outpatient follow up as needed if stones do not pass spontaneously (2) Pyelonephritis | UTI * Patient w/ significant abdominal pain, CVA TTP, nausea, and emesisat time of admission * Urinalysis with positive leuk est, RBC, WBC, and bacteria but denies urinary sx * Urine culture with pinpoint growth * More consistent with asx bacteriuria, abx tx deferred (3) Chronic Conditions * Hyoothyroidism: Continue Levothyroxine * T2DM:Continue home regimen * GERD: Continue PPI Total Time Total Time Spent Total Time Spent (In Minutes): <30 Discharge Plan Discharge Items Patient Disposition: Home - Self-Care Reason For Visit: NEPHROLITHIASIS, PYELONEPHRITIS Discharge Diagnosis: nephrolithiasis Condition on Discharge: Good Activity: Resume your previous activity Non-emergency contact: Primary Care Provider Call non-emergency contact if: you have any medication questions, your symptoms worsen, your pain is not controlled and you have a fever Follow-up/Referrals: John Olivo [Primary Care Provider] - Diet: Carb Consistent or DM2 Addtl Attending Provider Instructions: You were admitted to the hospital with kidney stones. You were evaluated by urology, who felt there was not a need for urgent intervention. Our hope is that these stones will pass spontaneously. You can continue to take Tylenol as needed for pain. Moving forward, it is very important that you stay well hydrated to m inimize the chance of recurrence - aim for minimum 60-80 ounces of fluid per day. You could consider discontinuing your vitamin C supplement, as it is possible this may reduce your risk of recurrent stone formation. Your urine sample was cultured and did not show bacterial growth, so there is no need for continued antibiotic treatment. A discharge summary will be sent to your primary care physician to ensure continuity of care. Please bring this discharge summary with you to your next office appointment so that your provider can review it at that time. Medications: Your medication list has been reviewed and reconciled upon discharge to ensure accuracy and continuity of care. An updated list of all your medications is included with your hospital discharge paperwork. Please review this list closely and make note of any changes to your medications. No changes were made to your home medications - please continue to take meds as previously directed. Follow up appointments: - Make a follow up appointment with your PCP within the next week. It is very important that you follow up with them shortly after discharge from the hospital. - Keep all of your follow up appointments as already scheduled. If you cannot make an appointment, notify your provider. CONTACT YOUR PRIMARY CARE PROVIDER if you experience any of the following: - Difficulty following your treatment plan - Difficulty taking any of your medications CALL 911 OR GO TO THE EMERGENCY DEPARTMENT if you experience any of the following: - Sudden, severe abdominal pain or nausea/vomiting - Severe chest pain or chest pain that radiates to your jaw or arm - Sudden, severe shortness of breath or difficulty breathing Pending Studies at Discharge: No Stand-Alone Forms: My [facility] [address], Smoking Cessation Medications and DC Order Prescriptions: Continued metformin 500 mg tablet 500 mg PO BID ascorbic acid (vitamin C) [Vitamin C] 1,000 mg Tablet 1 g PO DAILY levothyroxine 25 mcg tablet 25 mcg PO DAILY coenzyme Q10 [CoQ-10] 100 mg Capsule 200 mg PO DAILY omeprazole magnesium [Prilosec OTC] 20 mg Tablet,Delayed Release (Dr/Ec) 20 mg PO DAILY Probiotic 5 billion cell Capsule, Sprinkle 1 cap PO DAILY Discharge Orders: Discharge Order (Routine); Ordered 09/24/23 Ordered By: Bertrand Bhat/Other Patient Handouts: Managing Type 2 Diabetes Admission Data Admit Date/Time: 09/23/23 01:58 Attending Provider: Juan Manuel Kyle Admit Provider: Mychal Swift Primary Care Provider: John Olivo Other Providers: Catalina Cavazos; Rafal Jones; Richie Marques; Sterling Monterroso; Candi Iyer; Wander Rico; Eva Hoyos; Kavya Butler; Jl Zeng; Rebecca Esquivel; Johnny Singh; Levi Oconnell; Venkata Au Other Interventions: Discharge Summary Assessment (RN) Last Done: 09/24/23 11:56 Supervising Physician Co-Signing Physician Notes I personally examined the patient and verified all [place] points of history and exam, discussed case, and agree with decision making with Dr Pinzon Feeling better pain better would like to go home. Appreciate urology assistance as well. Vitals noted, in general she is awake and alert pleasant no distress. HEENT normocephalic atraumatic mucous membranes moist. Breathing unlabored no accessory muscle use good effort. Skin shows no rashes no pallor or icterus. Neuro without focal deficits. Ureterolithiasissymptomatically improved/safe/stable for home. Outpatient urology follow-up. With hindsight doubt she had an infection at all, all of her urinary symptoms were likely stone related. Otherwise as above. Resident Activity Tracking Resident Involvement: Resident Care Provided Care Provided: Adult [facility]"
--- NOTE | 2023-09-24 18:23 | Billing Data ---
Date of Service September 24, 2023 Coding Level of Care Code 35372 IN/OBS DISCH 30 MIN/LESS
== END 2023-09-24 13:24 | disposition home or self-care (01) | DRG 690 ==
LOC: ED 21:16 → SUATTDRO 09-23 01:58 → 3N 09-23 01:58